=== PATIENT | male | born 1945 | race Caucasian/White ===

== ENCOUNTER → 2018-01-10 | Day surgery (SDC) | payer OTHER ==
[2018-01-05 09:45] LABS: BASOPHILS # (AUTO) 0.1 (0.0-0.1); BASOPHILS % 1.1 % (0.0-1.0); EOSINOPHILS # (AUTO) 0.1 (0.0-0.4); EOSINOPHILS % 1.7 % (0.0-6.0); HEMATOCRIT 42.3 % (38.2-49.6); HEMOGLOBIN 14.8 g/dL (14.0-18.0); LYMPHOCYTES # (AUTO) 1.7 (1.0-3.2); LYMPHOCYTES % 24.1 % (18.0-39.1); MEAN CORPUSCULAR HEMOGLOBIN 31.8 pg (28-32); MONOCYTES # (AUTO) 0.8 (0.2-0.8); MONOCYTES % 11.5 % (4.4-11.3); NEUTROPHILS # (AUTO) 4.3 (2.1-6.9); NEUTROPHILS % 60.9 % (38.7-80.0); PLATELET COUNT 256 x10e3/uL (140-360); RED BLOOD COUNT 4.65 x10e6/uL (4.3-5.7); RED CELL DISTRIBUTION WIDTH 12.2 % (11.7-14.4)
--- NOTE | 2018-01-05 09:45 | Diagnostic Imaging Report ---
PROCEDURE: Frontal and lateral views of the chest. COMPARISON: Chest radiograph 05/10/2011. INDICATIONS: PREOPERATIVE CHEST XRAY FOR ELBOW SURGERY FINDINGS: Lines/tubes: None. Lungs: The lungs are moderately inflated. There is no evidence of pneumonia or pulmonary edema. Likely atelectatic change in the right middle lobe. Pleura: There is no pleural effusion or pneumothorax. Heart and mediastinum: The cardiomediastinal silhouette is unremarkable. There is eventration of the right hemidiaphragm. Bones: No acute bony abnormality. Degenerative changes of the thoracic spine. IMPRESSION: No acute radiographic abnormality. Dictated by: DON KLEIN M.D. on 01/05/2018 at 9:53 Electronically approved by: DON KLEIN M.D. on 01/05/2018 at 9:53
[~2018-01-10] MED LIST: ACETAMINOPHEN 1000 MG/100 ML IV ONE; BACITRACIN 50,000 UNIT VIAL ONE; BENADRYL25 M1; BUPIVACAINE 0.5%/EPI 30 ML SDV INJ ONE; BUPIVACAINE HCL 0.5% INJ 30 ML VIAL INJ ONE; CEFAZOLIN SOD 2 GM/D5W 50ML 50 ML IV ONE; DEXAMETHASONE SOD PHOS INJ 4 MG/ML VIAL ONE; FENTANYL CITRATE/PF 100MCG/2 ML INJ ONE; HYDROCHLOROTHIAZIDE; HYDROCODONE-AP1 EACH PO; HYDROMORPHONE 2MG/ML 2 MG/ML ML ONE; LIDOCAINE HCL 2% LOCAL INJ 5 ML SDV VIAL INJ ONE; MECLIZINE HCL12.5 MG PO; METRONIDAZOLE GEL; MIDAZOLAM HCL 2 MG/2 ML VIAL ONE; ONDANSETRON HCL INJ 2 MG/ML VIAL ONE; PROPOFOL IV EMULSION 10 MG/ML 20 ML VIAL ONE; SEVOFLURANE INHAL SOLN 250 ML PEN BTL ONE; SOD; SULFUR; TRIAMTERENE; Z.0.ALTACE10 M1 PO; Z.0.LOVASTATIN20 MG PO; Z.0.NEXIUM40 MG PO; Z.0.SPIRIVA18 MCG IH; [UNRECOGNIZED DRUG - OTHER]; [UNRECOGNIZED DRUG - OTHER] IH
--- OUTSIDE RECORDS SUMMARY | 2018-01-10 05:39 | XMS REPORT | Continuity of Care Document ---
Author Author [employer] [facility] [place] Interface Address Unknown Phone Unavailable Problems Problem Status Onset Date Classification Date Reported Comments Source PVC'S Active 07/09/2012 [facility] GERD - Gastro-esophageal reflux disease Resolved Problem 07/21/2012 [facility] Hyperlipidemia Resolved Problem 07/21/2012 [facility] Hypertension Resolved Problem 07/21/2012 [facility] Medications Medication Details Route Status Patient Instructions Ordering Provider Order Date Source fentanyl 25 microgram, 0.5 mL, Route: IV, Drug form: INJ, ONCE, Dosing Weight 84.545, kg, Start date: 07/19/12 12:58:00, Stop date: 07/19/12 12:58:00 IV No Longer Active Ferguson 07/19/2012 [facility] Tylenol 650 mg, 2 tab, Route: PO, Drug form: TAB, Q4H, Dosing Weight 84.545, kg, PRN Pain, Start date: 07/19/12 12:57:00, Duration: 30 day, Stop date: 08/18/12 12:56:00 PO No Longer Active Sesar 07/19/2012 [facility] Zofran 4 mg, 2 mL, Route: IV, Drug form: INJ, Q8H, Dosing Weight 84.545, kg, PRN Nausea, Start date: 07/19/12 12:56:00, Duration: 30 day, Stop date: 08/18/12 12:55:00 IV No Longer Active Seasr 07/19/2012 [facility] pneumococcal 23-valent vaccine 0.5 ml, Route: IM, Drug Form: INJ, Daily, Start date: 07/19/12 9:00:00, Duration: 1 doses or times, Stop date: 07/19/12 9:00:00 IM No Longer Active TIFF 07/19/2012 [facility] aspirin 81 mg tablet, enteric coated 81 mg, 1 tab, PO, Daily, 0 tab, Substitution Allowed, ECTAB PO Active 07/19/2012 [facility] Spiriva 18 mcg inhalation capsule 18 microgram, 1 cap, INHALATION, Daily, 90 cap, Substitution Allowed, CAP INHALATION Active 07/19/2012 [facility] Nexium 40 mg oral delayed release capsule 40 mg, 1 cap, PO, Daily, 30 cap, Substitution Allowed PO Active 07/19/2012 [facility] lovastatin 20 mg oral tablet 20 mg, 1 tab, PO, Daily, 30 tab, Substitution Allowed, TAB PO Active 07/19/2012 [facility] metoprolol 25 mg oral tablet, extended release 25 mg, PO, Daily, 30 tab, Substitution Allowed PO Active 07/19/2012 [facility] hydrochlorothiazide-triamterene 25 mg-37.5 mg oral tablet 1 tab, PO, Daily, 30 tab, Substitution Allowed, Maintenance, TAB PO Active 07/19/2012 [facility] Allergies, Adverse Reactions, Alerts Substance Category Reaction Severity Reaction type Status Date Reported Comments Source Immunizations Immunization Date Given Site Status Last Updated Comments Source pneumococcal 23-valent vaccine 07/19/2012 completed Garth [facility] Results Order Name Results Value Reference Range Date Interpretation Comments Source BLOOD BANK RESULTS ABO/Rh A POS 07/19/2012 Unknown [facility] BLOOD BANK RESULTS Antibody Scrn Negative (07/19/2012 06:23:00) 07/19/2012 Normal [facility] CHEMISTRY Magnesium Lvl 2.0 mg/dL 1.8 - 2.4 07/19/2012 Normal [facility] CHEMISTRY AGAP 7.6 meq/L 10.0 - 20.0 07/19/2012 LOW [facility] CHEMISTRY eGFR 100 mL/min/1.73m2 07/19/2012 NA 1Result Comment: The eGFR is calculated using the CKD-EPI formula. In most young, healthy individuals the eGFR will be >90 mL/min/1.73m2. The eGFR declines with age. An eGFR of 60-89 may be normal in some populations, particularly the elderly, for whom the CKD-EPI formula has not been extensively validated. Use of the eGFR is not recommended in the following populations: Individuals with unstable creatinine concentrations, including patients and those with serious co-morbid conditions. Patients with extremes in muscle mass or diet. The data above are obtained from the National Kidney Disease Education Program (NKDEP) which additionally recommends that when the eGFR is used in patients with extremes of body mass index for purposes of drug dosing, the eGFR should be multiplied by the estimated BMI. [facility] CHEMISTRY Chloride Lvl 105 meq/L 95 - 109 07/19/2012 Normal [facility] CHEMISTRY Calcium Lvl 9.1 mg/dL 8.5 - 10.5 07/19/2012 Normal [facility] CHEMISTRY CO2 31 meq/L 24 - 32 07/19/2012 Normal [facility] CHEMISTRY Glucose Lvl 112 mg/dL 70 - 99 07/19/2012 HI 2Interpretive Data: Adult reference range values reflect the clinical guidelines of the [place] Diabetes Association. [facility] CHEMISTRY Creatinine Lvl 0.7 mg/dL 0.5 - 1.4 07/19/2012 Normal [facility] CHEMISTRY Potassium Lvl 4.6 meq/L 3.5 - 5.1 07/19/2012 Normal [facility] CHEMISTRY Sodium Lvl 139 meq/L 135 - 145 07/19/2012 Normal [facility] CHEMISTRY BUN 12 mg/dL 7 - 22 07/19/2012 Normal [facility] HEMATOLOGY PTT 30.4 s 22.9 - 35.8 07/19/2012 Normal 4Interpretive Data: Heparin Therapeutic Range: 57 - 92 Seconds [facility] HEMATOLOGY PT 13.3 s 12.0 - 14.7 07/19/2012 Normal [facility] HEMATOLOGY INR 0.99 0.85 - 1.17 07/19/2012 Normal 3Interpretive Data: RECOMMENDED RANGES FOR PROTIME INR: 2.0-3.0 for most medical and surgical thromboembolic states. 2.5-3.5 for artificial heart valves and recurrent embolism. INR SHOULD BE USED ONLY FOR PATIENTS ON STABLE ANTICOAGULANT THERAPY. [facility] HEMATOLOGY MCV 92.7 fL 80.0 - 94.0 07/19/2012 Normal [facility] HEMATOLOGY Hgb 14.5 g/dL 14.0 - 18.0 07/19/2012 Normal [facility] HEMATOLOGY RBC 4.54 M/CMM 4.70 - 6.10 07/19/2012 LOW [facility] HEMATOLOGY Hct 42.1 % 42.0 - 54.0 07/19/2012 Normal [facility] HEMATOLOGY Platelet 251 K/CMM 133 - 450 07/19/2012 Normal [facility] HEMATOLOGY MPV 7.1 fL 7.4 - 10.4 07/19/2012 LOW [facility] HEMATOLOGY RDW 13.2 % 11.5 - 14.5 07/19/2012 Normal [facility] HEMATOLOGY MCH 31.9 pg 27.0 - 31.0 07/19/2012 HI [facility] HEMATOLOGY MCHC 34.4 g/dL 32.0 - 36.0 07/19/2012 Normal [facility] HEMATOLOGY WBC 5.6 K/CMM 3.7 - 10.4 07/19/2012 Normal [facility] HEMATOLOGY Lymphocytes # 1.0 K/CMM 1.0 - 5.5 07/19/2012 Normal [facility] HEMATOLOGY Monocytes # 0.4 K/CMM 0.0 - 0.8 07/19/2012 Normal [facility] HEMATOLOGY Basophils # 0.1 K/CMM 0.0 - 0.2 07/19/2012 Normal [facility] HEMATOLOGY Eosinophils # 0.1 K/CMM 0.0 - 0.5 07/19/2012 Normal [facility] HEMATOLOGY Segs-Bands # 4.0 K/CMM 1.5 - 8.1 07/19/2012 Normal [facility] HEMATOLOGY Lymphocytes 17.7 % 20.0 - 40.0 07/19/2012 LOW [facility] HEMATOLOGY Eosinophils 1.3 % 0.0 - 4.0 07/19/2012 Normal [facility] HEMATOLOGY Basophils 1.0 % 0.0 - 1.0 07/19/2012 Normal [facility] HEMATOLOGY Monocytes 7.3 % 2.0 - 12.0 07/19/2012 Normal [facility] HEMATOLOGY Segs 72.7 % 45.0 - 75.0 07/19/2012 Normal [facility] Vital Signs Vital Sign Value Date Comments Source Diastolic (mm Hg) 67 07/20/2012 [facility] Systolic (mm Hg) 125 07/20/2012 [facility] Diastolic (mm Hg) 67 07/20/2012 [facility] Systolic (mm Hg) 126 07/20/2012 [facility] Systolic (mm Hg) 117 07/19/2012 [facility] Diastolic (mm Hg) 86 07/19/2012 [facility] Respitory Rate 14 07/19/2012 [facility] Respitory Rate 14 07/19/2012 [facility] Respitory Rate 14 07/19/2012 [facility] Temperature Oral (F) 99.4 F 07/19/2012 [facility] Weight 84.545 07/19/2012 [facility] Height 182.88 cm 07/19/2012 [facility] Encounters Location Location Details Encounter Type Encounter Number Reason For Visit Attending Provider ADM Date DC Date Status Source [facility] SOHA [id number] PVC'S NANCYShoaib FEGRUSON 07/19/2012 07/19/2012 Active [facility] Procedures Procedure Code Date Perfomer Comments Source Ankle joint operations [id number] [facility] Foot joint operations [id number] [facility]
--- OUTSIDE RECORDS SUMMARY | 2018-01-10 05:39 | XMS REPORT | CCD ---
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 Role Phone Catie Kaba RP Allergies, Adverse Reactions, Alerts Substance Reaction Status NKDA Active Problem List Condition Effective Dates Status GERD - Gastro-esophageal reflux disease Resolved Hyperlipidemia Resolved Hypertension Resolved Medications Medication Instructions Start Date End Date Status aspirin 81 mg 81 mg, 1 tab, PO, Daily, 0 tab, 07/19/2012 Ordered tablet, enteric Substitution Allowed, ECTAB coated pneumococcal 0.5 ml, Route: IM, Drug Form: INJ, 07/19/2012 07/19/2012 Completed 23-valent vaccine Daily, Start date: 07/19/12 9:00:00, Duration: 1 doses or times, Stop date: 07/19/12 9:00:00 Spiriva 18 mcg 18 microgram, 1 cap, INHALATION, 07/19/2012 Ordered inhalation capsule Daily, 90 cap, Substitution Allowed, CAP Nexium 40 mg oral 40 mg, 1 cap, PO, Daily, 30 cap, 07/19/2012 Ordered delayed release Substitution Allowed capsule lovastatin 20 mg 20 mg, 1 tab, PO, Daily, 30 tab, 07/19/2012 Ordered oral tablet Substitution Allowed, TAB metoprolol 25 mg 25 mg, PO, Daily, 30 tab, 07/19/2012 08/17/2012 Ordered oral tablet, Substitution Allowed extended release hydrochlorothiazide- 1 tab, PO, Daily, 30 tab, 07/19/2012 Ordered triamterene 25 Substitution Allowed, Maintenance, mg-37.5 mg oral TAB tablet Tylenol 650 mg, 2 tab, Route: PO, Drug 07/19/2012 07/20/2012 Discontinued form: TAB, Q4H, Dosing Weight 84.545, kg, PRN Pain, Start date: 07/19/12 12:57:00, Duration: 30 day, Stop date: 08/18/12 12:56:00 Zofran 4 mg, 2 mL, Route: IV, Drug form: 07/19/2012 07/20/2012 Discontinued INJ, Q8H, Dosing Weight 84.545, kg, PRN Nausea, Start date: 07/19/12 12:56:00, Duration: 30 day, Stop date: 08/18/12 12:55:00 pneumococcal 0.5 ml, Route: IM, Drug Form: INJ, 07/19/2012 07/19/2012 Completed 23-valent vaccine Start date: 07/19/12 9:00:00, Stop date: 07/19/12 9:00:00 fentanyl 25 microgram, 0.5 mL, Route: IV, 07/19/2012 07/19/2012 Completed Drug form: INJ, ONCE, Dosing Weight 84.545, kg, Start date: 07/19/12 12:58:00, Stop date: 07/19/12 12:58:00 Immunizations Vaccine Date Status pneumococcal 23-valent vaccine 07/19/2012 Auth (Verified) Vital Signs Most recent to oldest [Reference Range]: 1 2 3 Height 182.88 cm (07/19/2012 06:09:00) Temperature Oral [96.4-99.1 DegF] 99.4 DegF *HI* (07/19/2012 06:15:00) Systolic Blood Pressure [90-140 mmHg] 125 mmHg (07/19/2012 19:45:00) 126 mmHg (07/19/2012 19:00:00) 117 mmHg (07/19/2012 18:30:00) Diastolic Blood Pressure [60-90 mmHg] 67 mmHg (07/19/2012 19:45:00) 67 mmHg (07/19/2012 19:00:00) 86 mmHg (07/19/2012 18:30:00) Respiratory Rate [14-20 BRMIN] 14 BRMIN (07/19/2012 17:00:00) 14 BRMIN (07/19/2012 16:30:00) 14 BRMIN (07/19/2012 16:00:00) Weight 84.545 kg (07/19/2012 06:09:00) Results BLOOD BANK RESULTS Most recent to oldest [Reference Range]: 1 ABO/Rh A POS *Unknown* (07/19/2012 06:23:00) Antibody Scrn Negative (07/19/2012 06:23:00) CHEMISTRY Most recent to oldest [Reference Range]: 1 Sodium Lvl [135-145 mEq/L] 139 mEq/L (07/19/2012 06:10:00) Potassium Lvl [3.5-5.1 mEq/L] 4.6 mEq/L (07/19/2012 06:10:00) Chloride Lvl [95-109 mEq/L] 105 mEq/L (07/19/2012 06:10:00) CO2 [24-32 mEq/L] 31 mEq/L (07/19/2012 06:10:00) AGAP [10.0-20.0 mEq/L] 7.6 mEq/L *LOW* (07/19/2012 06:10:00) Creatinine Lvl [0.5-1.4 mg/dL] 0.7 mg/dL (07/19/2012 06:10:00) eGFR 100 mL/min/1.73m2 1 *NA* (07/19/2012:10:00) BUN [7-22 mg/dL] 12 mg/dL (07/19/2012 06:10:00) Glucose Lvl [70-99 mg/dL] 112 mg/dL 2 *HI* (07/19/2012 06:10:00) Calcium Lvl [8.5-10.5 mg/dL] 9.1 mg/dL (07/19/2012 06:10:00) Magnesium Lvl [1.8-2.4 mg/dL] 2.0 mg/dL (07/19/2012 06:10:00) 1Result Comment: The eGFR is calculated using [...] from the National Kidney Disease Education Program ( NKDEP) which additionally recommends that when the eGFR is used in patients with extremes of body mass index for purposes of drug dosing, the eGFR should be mul tiplied by the estimated BMI. 2Interpretive Data: Adult reference range values reflect the clinical guidelines of the [place] [employer]. HEMATOLOGY Most recent to oldest [Reference Range]: 1 WBC [3.7-10.4 K/CMM] 5.6 K/CMM (07/19/2012 06:10:00) RBC [4.70-6.10 M/CMM] 4.54 M/CMM *LOW* (07/19/2012 06:10:00) Hgb [14.0-18.0 g/dL] 14.5 g/dL (07/19/2012 06:10:00) Hct [42.0-54.0 %] 42.1 % (07/19/2012 06:10:00) MCV [80.0-94.0 fL] 92.7 fL (07/19/2012 06:10:00) MCH [27.0-31.0 pg] 31.9 pg *HI* (07/19/2012 06:10:00) MCHC [32.0-36.0 g/dL] 34.4 g/dL (07/19/2012 06:10:00) RDW [11.5-14.5 %] 13.2 % (07/19/2012 06:10:00) Platelet [133-450 K/CMM] 251 K/CMM (07/19/2012 06:10:00) MPV [7.4-10.4 fL] 7.1 fL *LOW* (07/19/2012 06:10:00) Segs [45.0-75.0 %] 72.7 % (07/19/2012 06:10:00) Lymphocytes [20.0-40.0 %] 17.7 % *LOW* (07/19/2012 06:10:00) Monocytes [2.0-12.0 %] 7.3 % (07/19/2012 06:10:00) Eosinophils [0.0-4.0 %] 1.3 % (07/19/2012 06:10:00) Basophils [0.0-1.0 %] 1.0 % (07/19/2012 06:10:00) Segs-Bands # [1.5-8.1 K/CMM] 4.0 K/CMM (07/19/2012 06:10:00) Lymphocytes # [1.0-5.5 K/CMM] 1.0 K/CMM (07/19/2012 06:10:00) Monocytes # [0.0-0.8 K/CMM] 0.4 K/CMM (07/19/2012 06:10:00) Eosinophils # [0.0-0.5 K/CMM] 0.1 K/CMM (07/19/2012 06:10:00) Basophils # [0.0-0.2 K/CMM] 0.1 K/CMM (07/19/2012 06:10:00) PT [12.0-14.7 seconds] 13.3 seconds (07/19/2012 06:10:00) INR [0.85-1.17] 0.99 3 (07/19/2012 06:10:00) PTT [22.9-35.8 seconds] 30.4 seconds 4 (07/19/2012 06:10:00) 3Interpretive Data: RECOMMENDED RANGES FOR PROTIME INR: 2.0-3.0 for most medical and surgical thromboembolic states. 2.5-3.5 for artificial heart valves and recurrent embolism. INR SHOULD BE USED ONLY FOR PATIENTS ON STABLE ANTICOAGULANT THERAPY. 4Interpretive Data: Heparin Therapeutic Range: 57 - 92 Seconds Procedures Procedures Date Related Diagnosis Ankle joint operations Foot joint operations
--- OUTSIDE RECORDS SUMMARY | 2018-01-10 05:39 | XMS REPORT ---
Author [facility] Address Unknown Phone Unavailable Care Team Providers Care Member Service Representative Name Role Phone BENNIE RAMIREZ Unavailable Unavailable Problems This patient has no known problems. Allergies, Adverse Reactions, Alerts This patient has no known allergies or adverse reactions. Medications This patient has no known medications. Results Test Description Test Time Test Comments Text Results Atomic Results Result Comments CHEST 2 VIEWS 2018-01-05 09:53:00 [place] [address] Patient Name: RUIZ ROSENBERG MR #: [id number] : 1945 Age/Sex: 72/M Req #: [id number] [facility] Physician: Ordered by: BENNIE RAMIREZ MD Report #: [id number] Location: OR Room/Bed: Procedure: [id number] DX/CHEST 2 VIEWS Exam Date: Exam Time: REPORT STATUS: Signed PROCEDURE: Frontal and lateral views of the chest. COMPARISON: Chest radiograph 05/10/2011. INDICATIONS: PREOPERATIVE CHEST XRAY FOR ELBOW SURGERY FINDINGS: Lines/tubes: None. Lungs: The lungs are moderately inflated. There is no evidence of pneumonia or pulmonary edema. Likely atelectatic change in the right middle lobe. Pleura: There is no pleural effusion or pneumothorax. Heart and mediastinum: The cardiomediastinal silhouette is unremarkable. There is eventration of the right hemidiaphragm. Bones: No acute bony abnormality. Degenerative changes of the thoracic spine. IMPRESSION: No acute radiographic abnormality. Dictated by: DON KLEIN M.D. on 01/05/2018 at 9:53 Electronically approved by: DON KLEIN M.D. on 01/05/2018 at 9:53 Dictated By: DON KLEIN MD 2 Transcribed By: ALPESH on 01/05/18 09 COPY TO: BENNIE RAMIREZ MD
[2018-01-10 10:20] VITALS: BP 129/79
--- NOTE | 2018-01-11 14:58 | Operative Report ---
DATE OF PROCEDURE: January 10, 2018 PREOPERATIVE DIAGNOSES 1. Left olecranon bursitis. 2. Left triceps tendon avulsion. POSTOPERATIVE DIAGNOSES 1. Left olecranon bursitis. 2. Left triceps tendon avulsion. PROCEDURE PERFORMED: 1. Repair of the left triceps tendon avulsion. 2. 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 HISTORY PROFESSOR: Navay Louis. ANESTHESIA: General endotracheal intubation anesthesia. IV FLUIDS: Per the anesthesia record. BRIEF DESCRIPTION OF THE PATIENT'S OPERATIVE PROCEDURE: Mr. Chirinos was taken to the operating room and placed in the supine position on the operating room table. Following the induction of general anesthesia as well as endotracheal intubation, the patient's left upper extremity was examined under anesthesia. He was found to have an enlarged area of swelling overlying the left olecranon and proximal forearm consistent with a bursitis. He also had a palpable defect along the insertion site of the triceps into the olecranon process. Patient was turned into a lateral position with the left side up. He was held in place with a inflated beanbag. An axillary roll was placed in the right chest wall. His bilateral lower extremities were also padded at this time. His left upper extremity was prepped and draped in the standard surgical fashion. An incision was created over the distal aspect of the arm extending to and beyond the olecranon process. This incision was carried through skin only. Blunt dissection was used to deepen the incision to the level of the triceps tendon. A large bursa was also encountered and the bursal fluid was excised at this time. A rongeur was also used to excise the bursal tissue. The triceps avulsion was easily identified. The insertion site for the triceps was debrided to a bleeding bony bed. The triceps was found to be delaminated as well as torn free from the bone. The triceps was debrided in a sharp fashion. FiberWire suture was woven through the triceps tendon in a whip stitch type fashion. Three. drill holes were created through the denuded insertion site for the olecranon process. The sutures were passed through the drill holes and the triceps was advanced into its normal insertion site. The sutures were then tied firmly over bony bridges. This allowed for complete reapproximation of the triceps to the olecranon process. The wound was then copiously irrigated. The soft tissues were then closed in a multilayer fashion. Sterile dressings were applied as well as a well-formed and padded posterior splint. The patient was then awakened, taken to post anesthesia care unit in stable condition. Navya Louis acted as assistant food service director for this case and was necessary for both prepping and draping of the patient as well as retraction of soft tissues that allowed this case to be successful. Job#: [id number] DEBRA
== END | disposition home or self-care (01) ==
LOC: OR 05:36
PROVIDERS: ATTEND Specialist
DX: S46.312A Strain of muscle, fascia and tendon of triceps, left arm, initial encounter (principal); M70.22 Olecranon bursitis, left elbow; I10 Essential (primary) hypertension; M54.9 Dorsalgia, unspecified; J98.6 Disorders of diaphragm; K21.9 Gastro-esophageal reflux disease without esophagitis; X58.XXXA Exposure to other specified factors, initial encounter; Y93.B3 Activity, free weights; Y99.8 Other external cause status; Z01.810 Encounter for preprocedural cardiovascular examination; Z01.812 Encounter for preprocedural laboratory examination; Z01.818 Encounter for other preprocedural examination
CPT/HCPCS: 24105; 24342; 36415; 71046; 85025; 93005; C1713; J0131; J0690; J1100; J1170; J2001; J2250; J2405; J2704

== ENCOUNTER → 2018-12-12 | Day surgery (SDC) | payer MEDICARE ==
[2018-12-06 08:57] LABS: BASOPHILS # (AUTO) 0.1 (0.0-0.1); BASOPHILS % 1.5 % (0.0-1.0); EOSINOPHILS # (AUTO) 0.2 (0.0-0.4); EOSINOPHILS % 3.4 % (0.0-6.0); HEMATOCRIT 39.8 % (38.2-49.6); HEMOGLOBIN 13.9 g/dL (14.0-18.0); LYMPHOCYTES # (AUTO) 1.6 (1.0-3.2); MEAN CORPUSCULAR HEMOGLOBIN 31.5 pg (28-32); MEAN CORPUSCULAR HGB CONC 34.9 g/dL (31-35); MEAN CORPUSCULAR VOLUME 90.2 fL (81-99); MONOCYTES # (AUTO) 0.7 (0.2-0.8); MONOCYTES % 14.6 % (4.4-11.3); NEUTROPHILS # (AUTO) 2.1 (2.1-6.9); NEUTROPHILS % 45.1 % (38.7-80.0); PLATELET COUNT 246 x10e3/uL (140-360); RED BLOOD COUNT 4.41 x10e6/uL (4.3-5.7)
--- NOTE | 2018-12-06 09:25 | Diagnostic Imaging Report ---
Chest, 2 views, 12/06/2018. History: Preop, hernia repair. Comparison: None available. Findings: The cardiomediastinal silhouette and pulmonary vasculature are within normal limits. There is tortuosity of the descending thoracic aorta. There is eventration of the right hemidiaphragm. A calcified granuloma is present at the left lung base. The lungs are otherwise clear without evidence of consolidation or pleural effusion. Degenerative changes are present throughout the thoracic spine. There are no acute osseous or soft tissue abnormalities. Impression: No acute cardiopulmonary abnormality. Signed by: Shiraz Mittal on 12/06/2018 9:22 AM
[2018-12-06 10:19] LABS: ANION GAP 11.5 mmol/L (8-16); BLOOD UREA NITROGEN 11 mg/dL (7-26); BUN/CREATININE RATIO 14 (6-25); CALCIUM 9.8 mg/dL (8.4-10.2); CARBON DIOXIDE 28 mmol/L (22-29); CHLORIDE 95 mmol/L (98-107); CREATININE, SERUM 0.76 mg/dL (0.72-1.25); EST GLOMERULAR FILTRATION RATE > 60 ML/MIN (60-); GLUCOSE 82 mg/dL (74-118); POTASSIUM 4.5 mmol/L (3.5-5.1); SODIUM 130 mmol/L (136-145)
[~2018-12-12] MED LIST changes: -ACETAMINOPHEN 1000 MG/100 ML IV ONE; +ALFUZOSIN HCL10 MG PO; -BACITRACIN 50,000 UNIT VIAL ONE; +BUPIVACAINE 0.25%/EPI 30ML SDV INJ ONE; -BUPIVACAINE 0.5%/EPI 30 ML SDV INJ ONE; -BUPIVACAINE HCL 0.5% INJ 30 ML VIAL INJ ONE; -CEFAZOLIN SOD 2 GM/D5W 50ML 50 ML IV ONE; -HYDROMORPHONE 2MG/ML 2 MG/ML ML ONE; -MIDAZOLAM HCL 2 MG/2 ML VIAL ONE; -ONDANSETRON HCL INJ 2 MG/ML VIAL ONE; +ONDANSETRON HCL INJ 2MG/ML 2ML 2 MG/ML VIAL ONE; +ROCURONIUM BROMIDE 10 MG/ML 5ML VIAL ONE; +TRIAMTERENE-HCTZ1 EA PO; +TYLENOL WITH C1 EAC1 PO
[2018-12-12 10:50] VITALS: BP 134/92
--- NOTE | 2018-12-12 16:03 | Operative Report ---
DATE OF PROCEDURE: 12/12/2018 SURGEON: Guillermo Stearns MD PREOPERATIVE DIAGNOSIS: Ventral hernia. POSTOPERATIVE DIAGNOSIS: Ventral hernia. OPERATION PERFORMED: Repair of ventral hernia with mesh. ANESTHESIA: General. COMPLICATIONS: None. ESTIMATED BLOOD LOSS: Minimal. DESCRIPTION OF PROCEDURE: With the patient lying in bed in the supine position under good general anesthesia, the abdomen was prepped with Betadine solution and draped in the usual manner. A transverse incision was made in the subumbilical space. It was carried down through the subcutaneous tissue down to the fascia. Hernia sac was then encountered to the right of the umbilicus and lateral to the previous repair. The umbilicus was then from the midline fascia and a bunch of Prolene sutures were identified, which were removed. Two other smaller defects were found above the previous repair in the epigastric region. The hernia sac was then opened. There were no adhesions to the undersurface of the repair that the patient had done before. The 2 smaller defects above the umbilicus were then closed with interrupted sutures of 0 Ethibond. A medium-sized Ventralex patch was then placed through the ventral hernia defect and deployed in the intraabdominal cavity to cover the entire area, where all the defects were found. The mesh was then anchored using interrupted sutures of 0 Ethibond to cover the whole area in question and the hernia defect was then closed transversely anchoring the mesh with the closure using 0 Ethibond. This gave us a satisfactory repair without any tension. The whole area was thoroughly irrigated. Perfect hemostasis was ascertained. The fascial planes were then infiltrated with 0.25% Marcaine solution. The umbilicus was then tacked back down to the midline fascia with 3-0 Vicryl. The subcutaneous tissue was approximated with 3-0 Vicryl and the skin was closed with philip. A dressing was applied. The sponge, lap, and needle count was correct. The patient tolerated the procedure well and returned to the recovery room in stable condition. MD PATRICK ClarkR/MODL /[id number]
== END | disposition home or self-care (01) ==
LOC: OR 06:18
PROVIDERS: ATTEND Surgery
DX: K43.9 Ventral hernia without obstruction or gangrene (principal); Z01.810 Encounter for preprocedural cardiovascular examination; Z01.812 Encounter for preprocedural laboratory examination; Z01.811 Encounter for preprocedural respiratory examination; M54.9 Dorsalgia, unspecified; I47.1 Supraventricular tachycardia; I10 Essential (primary) hypertension; K21.9 Gastro-esophageal reflux disease without esophagitis
CPT/HCPCS: 36415; 49565; 49568; 71046; 80048; 85025; 93005; C1781; J1100; J2001; J2405; J2704; J3010